=== PATIENT | male | born 1960 | race Caucasian/White ===

== ENCOUNTER 2023-01-15 11:48 | Emergency (ER) | payer MEDICARE ==
[~2023-01-15] VITALS: Ht 172.7 cm; Wt 55.8 kg
[2023-01-15 11:55] VITALS: BP_SYST 135; PULSE 69; RESP 18; TEMP 98.3; O2SAT 95
[2023-01-15 13:11] LABS: BASOPHILS % (AUTO) 0.3 % (0.0-2.0); HEMATOCRIT 44.4 % (36-54); HEMOGLOBIN 15.1 g/dL (14.0-18.0); LYMPHOCYTES # (AUTO) 0.5 K/uL (1.0-5.5); LYMPHOCYTES % (AUTO) 10.4 % (20.5-51.5); MEAN CORPUSCULAR HEMOGLOBIN 33 pg (27-31); MEAN CORPUSCULAR HGB CONC 34 % (32-36); MEAN CORPUSCULAR VOLUME 96 fL (79.0-98.0); MONOCYTES # (AUTO) 0.3 K/uL (0.0-1.0); MONOCYTES % (AUTO) 5.1 % (1.7-9.3); NEUTROPHILS # (AUTO) 4.1 K/uL (1.8-7.7); NEUTROPHILS % (AUTO) 84.2 % (40.0-70.0); PLATELET COUNT (AUTO) 141 K/uL (130-430); RED BLOOD CELL COUNT(AUTO) 4.64 MIL/uL (4.2-6.2); WHITE BLOOD COUNT (AUTO) 4.9 K/uL (4.8-10.8)
[2023-01-15 13:21] LABS: CALCIUM 8.9 mg/dL (8.4-11.0); CREATININE 0.98 mg/dL (0.55-1.30); POTASSIUM 3.4 mmol/L (3.5-5.1)
[2023-01-15 13:25] LABS: ALBUMIN 3.1 g/dL (3.4-4.8); TOTAL BILIRUBIN 0.6 mg/dL (0.0-1.0); TOTAL PROTEIN, SERUM 7.1 g/dL (6.4-8.3)
[2023-01-15] MEDS: NACL 0.9% 1,000 ML IV ONE (13:55)
[2023-01-15] MEDS: ONDANSETRON HCL 4 MG/2 ML VIAL IVP ONE (14:47)
[2023-01-15] MEDS ORDERED: CEPH250C PO (16:44)
[2023-01-15] MEDS ORDERED: DOXY100C5 PO (16:44)
[2023-01-15] MEDS ORDERED: DICY-14 PO (16:54)
[2023-01-15] MEDS ORDERED: POLY17PO4 PO (16:54)
[2023-01-15 17:44] VITALS: BP_SYST 135; PULSE 69; RESP 18; TEMP 98.3; O2SAT 95
== END 2023-01-15 17:42 | disposition home or self-care (01) ==
LOC: SED 11:48
DX: R10.13 Epigastric pain (principal); R11.2 Nausea with vomiting, unspecified; Z79.899 Other long term (current) drug therapy
CPT/HCPCS: 99285; 74177; 96374; 96361; 80053; 83690; 85025; 36415; 76376; J2405; Q9967; J7030